=== PATIENT | female | born 1985 | race Caucasian/White ===

== ENCOUNTER 2017-02-15 13:43 | Emergency (ER) | payer OTHER ==
[2017-02-15 14:00] VITALS: BP 134/86
--- NOTE | 2017-02-15 15:23 | ED.ADGEN ---
Past History Past Medical History: No Pertinent History Past Surgical History: No Surgical History Alcohol Use: None Drug Use: None Adult General Chief Complaint Chief Complaint Left arm pain HPI HPI Patient is a 31-year-old right-handed female presents with left arm pain after falling down some steps 2 days ago. Patient reports persistent pain tenderness and swelling to proximal third of her wrists over bicep. Pain with palpation and movement. Initially reports left shoulder pain which has since resolved. Denies wrist, or elbow pain. No other symptoms or complaints. Patient has not been evaluated for this complaint prior to today's visit. [] Review of Systems Review of Systems Review symptoms as per history of present illness. All other review symptoms are negative. All other systems were reviewed and found to be within normal limits, except as documented in this note. Allergies Allergies Allergies Coded Allergies Type Severity Reaction Last Updated Verified amoxicillin Allergy Unknown 02/29/16 Yes Physical Exam Physical Exam Constitutional: Well developed, well nourished, no acute distress, non-toxic appearance. [] HENT: Normocephalic, atraumatic, bilateral external ears normal, oropharynx moist, no oral exudates, nose normal. [] Eyes: PERRLA, EOMI. Neck: Normal range of motion, no tenderness, supple, no stridor. [] Lungs & Thorax: Bilateral breath sounds clear to auscultation [] Extremities: Left upper extremity, no deformities,soft tissue tenderness mild swelling over anterior third of bicep, limited abduction and flexion extension. no pain, tenderness swelling, bruising over shoulder, left elbow, forearm wrist pain.. [] Neurologic: Alert and oriented X 3, left upper extremity, no motor sensory deficits. [] Psychologic: Affect normal, judgement normal, mood normal. [] Current Patient Data Vital Signs Vital Signs Date Time Temp Pulse Resp B/P (MAP) Pulse Ox O2 Delivery O2 Flow Rate FiO2 02/15/17 14:00 98.0 81 16 99 Room Air EKG EKG [] Radiology/Procedures Radiology/Procedures [Left humerus: No obvious displaced fracture] Course & Med Decision Making Course & Med Decision Making Pertinent Labs and Imaging studies reviewed. (See chart for details) [Left arm pain without obvious displaced fracture. Recommend supportive care and PCP follow-up as needed.] Final Impression Final Impression [Left arm contusion] Problems: Dragon Disclaimer Dragon Disclaimer This electronic medical record was generated, in whole or in part, using a voice recognition dictation system. JANIE AGUILAR DO Feb 15, 2017 15:22
--- NOTE | 2017-02-15 16:35 | RAD ---
Exam: Left humerus radiograph 02/15/2017 Indication: Left humerus pain, status post fall Comparison: None available Technique: 2 views of the left humerus are provided. Findings: There is no acute fracture or dislocation. No joint space narrowing. No soft tissue swelling. No osseous erosion or soft tissue gas. Bone mineralization is within normal limits. Impression: No acute fracture or dislocation.
== END 2017-02-15 16:00 | disposition home or self-care (01) ==
LOC: ER 13:43
DX: S40.022A Contusion of left upper arm, initial encounter (principal); Z88.1 Allergy status to other antibiotic agents; W10.8XXA Fall (on) (from) other stairs and steps, initial encounter; Y93.89 Activity, other specified; Y99.8 Other external cause status; Y92.89 Other specified places as the place of occurrence of the external cause
CPT/HCPCS: 73060; 99284

== ENCOUNTER 2018-05-14 08:20 | Emergency (ER) | payer OTHER ==
[~2018-05-14] VITALS: Ht 149.9 cm; Wt 52.2 kg
[2018-05-14] MEDS ORDERED: CLOB15OI TP (08:57)
--- NOTE | 2018-05-14 08:59 | PHYS DOC ---
Past History Past Medical History: No Pertinent History Past Surgical History: No Surgical History Alcohol Use: None Drug Use: None Adult General Chief Complaint Chief Complaint: mouth pain HPI HPI 32 year old female presents with mouth pain. Patient states that she had a feeling of a ridge on the report from now on the left side couple days ago and then the area is tender rupture. Afterward, she has had significant pain in her mouth. She tried again or primary care physician and dentist in neither one can see her till next week. Patient is concerned that it might be infection. She has known dental issues, but states that her teeth are not hurting and her gums are not swollen. This pain radiates up into her left ear. No history of ear infections as an adult. She denies fever or chills. Review of Systems Review of Systems Constitutional: Denies fever or chills [] Eyes: Denies change in visual acuity, redness, or eye pain [] HENT: Upper mouth pain[] Respiratory: Denies cough or shortness of breath [] Cardiovascular: No additional information not addressed in HPI [] GI: Denies abdominal pain, nausea, vomiting, bloody stools or diarrhea [] : Denies dysuria or hematuria [] Musculoskeletal: Denies back pain or joint pain [] Integument: Denies rash or skin lesions [] Neurologic: Denies headache, focal weakness or sensory changes [] Endocrine: Denies polyuria or polydipsia [] All other systems were reviewed and found to be within normal limits, except as documented in this note. Current Medications Current Medications Current Medications Medications (Trade) Dose Ordered Sig/[facility] Start Time Stop Time Status Last Admin Dose Admin Lidocaine HCl (Viscous Lidocaine) 15 ml 1X ONCE 05/14/18 09:00 05/14/18 09:01 UNV Allergies Allergies Allergies Coded Allergies Type Severity Reaction Last Updated Verified amoxicillin Allergy Unknown 02/29/16 Yes Physical Exam Physical Exam Constitutional: Well developed, well nourished, no acute distress, non-toxic appearance. [] HENT: Normocephalic, atraumatic, bilateral external ears normal, oropharynx with 1 cm ulceration on the left hard palate, no oral exudates, nose normal. [] Eyes: PERRLA, EOMI, conjunctiva normal, no discharge. [] Neck: Normal range of motion, no tenderness, supple, no stridor. [] Cardiovascular:Heart rate regular rhythm, no murmur [] Lungs & Thorax: Bilateral breath sounds clear to auscultation [] Abdomen: Bowel sounds normal, soft, no tenderness, no masses, no pulsatile masses. [] Skin: Warm, dry, no erythema, no rash. [] Back: No tenderness, no CVA tenderness. [] Extremities: No tenderness, no cyanosis, no clubbing, ROM intact, no edema. [] Neurologic: Alert and oriented X 3, normal motor function, normal sensory function, no focal deficits noted. [] Psychologic: Affect normal, judgement normal, mood normal. [] Current Patient Data Vital Signs Vital Signs Date Time Temp Pulse Resp B/P (MAP) Pulse Ox O2 Delivery O2 Flow Rate FiO2 05/14/18 08:42 67 22 100 Room Air EKG EKG [] Radiology/Procedures Radiology/Procedures [] Course & Med Decision Making Course & Med Decision Making Pertinent Labs and Imaging studies reviewed. (See chart for details) The patient appears to have an aphthous ulcer. Treat her with viscous lidocaine for comfort in the ED followed by a prescription for clobetasol 3 times a day for 5 days. She will also use Orajel for further discomfort. She is stable for discharge at this time. [] Dragon Disclaimer Dragon Disclaimer This electronic medical record was generated, in whole or in part, using a voice recognition dictation system. Departure Departure: Impression: Primary Impression: Aphthous ulcer Disposition: HOME, SELF-CARE Condition: STABLE Referrals: PCP,UNKNOWN (PCP) Patient Instructions: Oral Ulcers Scripts Clindamycin Hcl (CLINDAMYCIN HCL) 300 Mg Capsule 1 CAP PO TID for oral infection, #21 CAP Prov: JANIE NOVAK DO 05/14/18 Clobetasol Propionate (CLOBETASOL PROPIONATE) 15 Gm Oint...g. 1 CARLOS TP TID for oral ulcer for 5 Days, #15 GM Dry the effected area with gauze. Then pPlace a small amount of gel on the effected area. Do not rinse afterward. Do not eat or drink for 30 minutes Prov: JANIE NOVAK DO 05/14/18 JANIE NOVAK DO May 14, 2018 08:59
[2018-05-14 09:10] VITALS: BP 130/89
[2018-05-14] MEDS ORDERED: CLIN300C8 PO (09:26)
[2018-05-14] MEDS ORDERED: LIDOCAINE 2% VISCOUS 15 ML SOLUTION. SWSW ONE (09:30)
== END 2018-05-14 09:30 | disposition home or self-care (01) ==
LOC: ER 08:20
DX: K12.0 Recurrent oral aphthae (principal); Z88.1 Allergy status to other antibiotic agents
CPT/HCPCS: 99283

== ENCOUNTER 2018-07-02 19:33 | Emergency (ER) | payer OTHER ==
[~2018-07-02] VITALS: Ht 149.9 cm; Wt 52.2 kg
[~2018-07-02 19:33] MED LIST: CLIN300C8 PO; CLOB15OI TP
[2018-07-02 19:46] VITALS: BP 131/84
[2018-07-02] MEDS ORDERED: IV NORMAL SALINE 1,000ML 1,000 ML IV SCH (19:50)
[2018-07-02 20:34] LABS: BASO % 1 % (0-3); EOS # 0.4 x10^3/uL (0.0-0.7); EOS % 8 % (0-3); LYMPH # 1.7 x10^3/uL (1.0-4.8); LYMPH % 36 % (24-48); MEAN CORPUSCULAR HEMOGLOBIN 31 pg (25-35); MEAN CORPUSCULAR HGB CONC 35 g/dL (31-37); MEAN CORPUSCULAR VOLUME 88 fL (79-100); MONO # 0.4 x10^3/uL (0.0-1.1); MONO % 8 % (0-9); NEUT # 2.3 x10^3uL (1.8-7.7); NEUT % 48 % (31-73); PLATELET COUNT 222 x10^3/uL (140-400); PREG TEST PT QUAL NEGATIVE (NEG); WHITE BLOOD COUNT 4.7 x10^3/uL (4.0-11.0)
--- NOTE | 2018-07-02 21:20 | PHYS DOC ---
Past History Past Medical History: No Pertinent History Past Surgical History: No Surgical History Alcohol Use: None Drug Use: None Adult General Chief Complaint Chief Complaint: SHORTNESS OF BREATH [facility] HPI Patient is a 32-year-old female who presents with complaint of shortness of breath that started yesterday. Patient indicates that she had been out jogging and states that she felt like she was having an asthma attack. She states that she got home and she used a nebulizer treatment but that did not resolve symptoms. She wonders if maybe she had just gotten exposed to too much pollen. She states that the symptoms did slowly resolve and then again last night around midnight, the symptoms returned without any actual wheezing. She states that she felt like she was just not able to get enough air in. Patient states that she had to sleep sitting up. She states that symptoms had ultimately resolved and then started up again when she was sitting down to dinner. She denies any leg pain or swelling. She also denies any chest pain or cough. She states that the symptoms are worsened with exertion.[] Review of Systems Review of Systems Constitutional: Denies fever or chills [] Respiratory: Complains of shortness of breath [] Cardiovascular: No additional information not addressed in HPI [] GI: Denies abdominal pain, nausea, vomiting or diarrhea [] Neurologic: Denies headache, focal weakness or sensory changes [] All other systems were reviewed and found to be within normal limits, except as documented in this note. Current Medications Current Medications Current Medications Medications (Trade) Dose Ordered Sig/[place] Start Time Stop Time Status Last Admin Dose Admin Sodium Chloride 1,000 ml @ 100 mls/hr Q10H 07/02/18 19:50 07/03/18 05:49 07/02/18 20:22 100 MLS/HR Allergies Allergies Allergies Coded Allergies Type Severity Reaction Last Updated Verified amoxicillin Allergy Unknown 02/29/16 Yes Physical Exam Physical Exam Constitutional: Well developed, well nourished, no acute distress, non-toxic appearance. [] HENT: Normocephalic, atraumatic, bilateral external ears normal, oropharynx moist, no oral exudates, nose normal. [] Eyes: PERRLA, EOMI, conjunctiva normal, no discharge. [] Neck: Normal range of motion, no tenderness, supple. [] Cardiovascular:Heart rate regular rhythm, no murmur [] Lungs & Thorax: Bilateral breath sounds clear to auscultation [] Abdomen: Bowel sounds normal, soft, no tenderness. [] Skin: Warm, dry, no erythema, no rash. [] Extremities: No tenderness, no cyanosis, no clubbing, ROM intact, no edema. [] Neurologic: Alert and oriented X 3, normal motor function, normal sensory function, no focal deficits noted. [] Current Patient Data Vital Signs Vital Signs Date Time Temp Pulse Resp B/P (MAP) Pulse Ox O2 Delivery O2 Flow Rate FiO2 07/02/18 19:46 98.5 74 20 100 Room Air Lab Results Laboratory Tests Test 07/02/18 20:12 07/02/18 20:42 White Blood Count 4.7 x10^3/uL (4.0-11.0) Red Blood Count 4.20 x10^6/uL (3.50-5.40) Hemoglobin 13.0 g/dL (12.0-15.5) Hematocrit 37.0 % (36.0-47.0) Mean Corpuscular Volume 88 fL (79-100) Mean Corpuscular Hemoglobin 31 pg (25-35) Mean Corpuscular Hemoglobin Concent 35 g/dL (31-37) Red Cell Distribution Width 13.0 % (11.5-14.5) Platelet Count 222 x10^3/uL (140-400) Neutrophils (%) (Auto) 48 % (31-73) Lymphocytes (%) (Auto) 36 % (24-48) Monocytes (%) (Auto) 8 % (0-9) Eosinophils (%) (Auto) 8 % (0-3) H Basophils (%) (Auto) 1 % (0-3) Neutrophils # (Auto) 2.3 x10^3uL (1.8-7.7) Lymphocytes # (Auto) 1.7 x10^3/uL (1.0-4.8) Monocytes # (Auto) 0.4 x10^3/uL (0.0-1.1) Eosinophils # (Auto) 0.4 x10^3/uL (0.0-0.7) Basophils # (Auto) 0.0 x10^3/uL (0.0-0.2) Troponin I Quantitative < 0.017 ng/mL (0-0.055) Serum Test, Qualitative Negative (NEG) POC Urine HCG, Qualitative hcg negative (Negative) EKG EKG EKG demonstrates normal sinus rhythm with rate of 68.[] Radiology/Procedures Radiology/Procedures [] Impressions: Two-view chest x-ray demonstrates no acute process. Course & Med Decision Making Course & Med Decision Making Pertinent Labs and Imaging studies reviewed. (See chart for details) [] Dragon Disclaimer Dragon Disclaimer This electronic medical record was generated, in whole or in part, using a voice recognition dictation system. Departure Departure: Impression: Primary Impression: Dyspnea Disposition: HOME, SELF-CARE Condition: STABLE Referrals: PCP,NO (PCP) Patient Instructions: Shortness of Breath Scripts Cetirizine Hcl (ZYRTEC) 10 Mg Tablet 1 TAB PO DAILY for allergies, #30 TAB Prov: CRISTIN PLASCENCIA Jr. DO 07/02/18 Montelukast Sodium (MONTELUKAST SODIUM TABLET) 10 Mg Tablet 1 TAB PO DAILY for asthma, #30 TAB Prov: CRISTIN PLASCENCIA Jr. DO 07/02/18 Problem Qualifiers Primary Impression: Dyspnea Dyspnea type: shortness of breath Qualified Codes: R06.02 - Shortness of breath CRISTIN PLASCENCIA Jr. DO July 02, 2018 21:20
[2018-07-02 21:31] LABS: ALBUMIN 3.9 g/dL (3.4-5.0); ALBUMIN/GLOBULIN RATIO 1.2 (1.0-1.7); CALCIUM 8.9 mg/dL (8.5-10.1); CREATININE 0.8 mg/dL (0.6-1.0); GFR 82.1; POTASSIUM 3.4 mmol/L (3.5-5.1); TOTAL BILIRUBIN 1.8 mg/dL (0.2-1.0); TOTAL PROTEIN 7.2 g/dL (6.4-8.2)
[2018-07-02] MEDS ORDERED: CETI10TA22 PO (22:22)
[2018-07-02] MEDS ORDERED: MONT10TA9 PO (22:22)
--- NOTE | 2018-07-03 00:34 | RAD ---
PA and lateral chest radiographs 07/02/2018 Clinical History: Shortness of breath. PA and lateral digital radiographs of the chest were obtained. No previous studies are available for comparison. The cardiac and mediastinal silhouettes are within normal limits in size and configuration. No pulmonary infiltrate is seen. No pleural effusion or pneumothorax is noted. The osseous structures are grossly intact. Impression: No radiographic evidence of active cardiopulmonary disease. Electronically signed by: Eren Sorto MD (07/03/2018 12:31 AM) [facility]
--- NOTE | 2018-07-04 22:10 | EKG ---
[address] [address] Test Date: 2018-07-02 Test Time: 20:28:20 Pat Name: JUANCHO NOLASCO Department: Room: Gender: F Director Of Acquisitions: ZHEN : 1985 Requested By: CRISTIN PLASCENCIA Order Number: [id number] Reading MD: Tad Ramos Measurements Intervals [place] Rate: 68 P: 62 ID: [id number] QRS: 78 QRSD: 78 T: 60 QT: 408 QTc: 434 Interpretive Statements SINUS RHYTHM Electronically Signed On 07-23-2018 12:37:55 CDT by Tad Ramos
== END 2018-07-02 22:41 | disposition home or self-care (01) ==
LOC: ER 19:50
DX: R06.02 Shortness of breath (principal); Z88.1 Allergy status to other antibiotic agents
CPT/HCPCS: 36415; 71046; 80053; 81025; 83880; 84484; 84703; 85025; 85379; 93005; 99285-25; J7030

== ENCOUNTER 2019-02-08 17:24 | Emergency (ER) | payer OTHER ==
[~2019-02-08] VITALS: Ht 149.9 cm; Wt 52.2 kg
[~2019-02-08 17:24] MED LIST changes: +CETI10TA22 PO; +MONT10TA80 PO
--- NOTE | 2019-02-08 17:41 | PHYS DOC ---
Past History Past Medical History: No Pertinent History (SAMIR LORA DO) Past Surgical History: No Surgical History (SAMIR LORA DO) Smoking: Non-smoker Alcohol Use: None Drug Use: None (SAMIR LORA DO) Adult General Chief Complaint Chief Complaint: COUGH HPI HPI Patient is a 33-year-old female presents complaining of respirophasic chest discomfort that has been present for the past 2 days. She feels like it is hard to take a deep breath. She has had some nasal congestion but this is chronic. She did get some relief with ibuprofen. But discomfort has gotten worse as the day has worn on. No significant cough. No sick family contacts. She has not had any travel or stasis, no trauma, and no known hypercoagulable state. She denies any hemoptysis or leg swelling.[] (SAMIR LORA DO) Review of Systems Review of Systems Constitutional: Denies fever or chills [] Eyes: Denies change in visual acuity, redness, or eye pain [] HENT: Denies nasal congestion or sore throat [] Respiratory: See history of present illness[] Cardiovascular: No additional information not addressed in HPI, no palpitations, no worsening with exertion[] GI: Denies abdominal pain, nausea, vomiting, bloody stools or diarrhea [] : Denies dysuria or hematuria [] Musculoskeletal: Denies back pain or joint pain [] Integument: Denies rash or skin lesions [] Neurologic: Denies headache, focal weakness or sensory changes [] Endocrine: Denies polyuria or polydipsia [] All other systems were reviewed and found to be within normal limits, except as documented in this note. (SAMIR LORA DO) Allergies Allergies Allergies Coded Allergies Type Severity Reaction Last Updated Verified amoxicillin Allergy Unknown 02/29/16 Yes (SAMIR LORA DO) Physical Exam Physical Exam Constitutional: Well developed, well nourished, no acute distress, non-toxic appearance. [] HENT: Normocephalic, atraumatic, bilateral external ears normal, oropharynx moist, no oral exudates, nose normal. [] Eyes: PERRLA, EOMI, conjunctiva normal, no discharge. [] Neck: Normal range of motion, no tenderness, supple, no stridor. [] Cardiovascular:Heart rate regular rhythm, no murmur [] Lungs & Thorax: Bilateral breath sounds clear to auscultation, no tenderness to palpation [] Abdomen: Bowel sounds normal, soft, no tenderness, no masses, no pulsatile masses. [] Skin: Warm, dry, no erythema, no rash. [] Back: No tenderness, no CVA tenderness. [] Extremities: No tenderness, no cyanosis, no clubbing, ROM intact, no edema. [] Neurologic: Alert and oriented X 3, normal motor function, normal sensory function, no focal deficits noted. [] Psychologic: Affect normal, judgement normal, mood normal. [] (SAMIR LORA DO) EKG EKG [] (SAMIR LORA DO) Radiology/Procedures Radiology/Procedures [] (SAMIR LORA DO) Impressions: CHEST PA LATERAL History: Chest pain Comparison: 07/02/2018 two-view chest x-ray exam. Findings: The cardiomediastinal silhouette is normal. Pulmonary vasculature is normal. The lungs are clear. No pleural effusion or pneumothorax is seen. There is no acute bone abnormality. IMPRESSION: No acute cardiopulmonary process. Electronically signed by: King Mccray MD (02/08/2019 6:33 PM) [facility] DICTATED AND SIGNED BY: KING MCCRAY MD DATE: 02/08/191832 CC: JANIE NOVAK DO; SAMIR LORA DO; PCP,NO ~ (JANIE NOVAK DO) Course & Med Decision Making Course & Med Decision Making Pertinent Labs and Imaging studies reviewed. (See chart for details) Emergency department course: Patient arrived, was placed in bed, and tolerated exam well. PERC rule for pulmonary embolism was negative.[] (SAMIR LORA DO) Course & Med Decision Making The patient's chest x-ray is negative. I further interviewed the patient and she describes her chest discomfort as a aching sensation only with deep breathing. She has had a low-grade fever of around 100. She admits this could be a viral illness. She is on a major was a pneumonia. She does not appear to have pneumonia at this time. She is stable for discharge. (JANIE NOVAK DO) Dragon Disclaimer Dragon Disclaimer This electronic medical record was generated, in whole or in part, using a voice recognition dictation system. (SAMIR LORA DO) Departure Departure: Impression: Primary Impression: Chest pain Disposition: HOME, SELF-CARE Condition: STABLE Referrals: PCP,NO (PCP) Patient Instructions: Chest Pain (Nonspecific), [id number] Problem Qualifiers Primary Impression: Chest pain Chest pain type: chest pain on breathing Qualified Codes: R07.1 - Chest pain on breathing SAMIR LORA DO Feb 08, 2019 17:41 JANIE NOVAK DO Feb 08, 2019 18:41
[2019-02-08] MEDS ORDERED: KETOROLAC 30 MG/ML VIAL. IM ONE (17:45)
--- NOTE | 2019-02-08 18:36 | RAD ---
CHEST PA LATERAL History: Chest pain Comparison: 07/02/2018 two-view chest x-ray exam. Findings: The cardiomediastinal silhouette is normal. Pulmonary vasculature is normal. The lungs are clear. No pleural effusion or pneumothorax is seen. There is no acute bone abnormality. IMPRESSION: No acute cardiopulmonary process. Electronically signed by: Kulwinder Soto MD (02/08/2019 6:33 PM) [facility]
[2019-02-08 18:56] VITALS: BP 120/62
== END 2019-02-08 18:57 | disposition home or self-care (01) ==
LOC: ER 17:24
DX: R07.1 Chest pain on breathing (principal); Z88.1 Allergy status to other antibiotic agents
CPT/HCPCS: 71046; 96372; 99284; J1885

== ENCOUNTER 2019-04-09 08:40 | Emergency (ER) | payer OTHER ==
[~2019-04-09] VITALS: Ht 149.9 cm; Wt 50.0 kg
[~2019-04-09 08:40] MED LIST changes: -CETI10TA22 PO; +CETI10TA24 PO
[2019-04-09] MEDS ORDERED: IV NORMAL SALINE 1,000ML 1,000 ML IV SCH (08:54)
[2019-04-09 09:25] VITALS: BP 131/89
[2019-04-09 09:32] LABS: CALCIUM 8.4 mg/dL (8.5-10.1); CREATININE 0.7 mg/dL (0.6-1.0); GFR 95.2; POTASSIUM 3.8 mmol/L (3.5-5.1)
[2019-04-09 09:38] LABS: ALBUMIN/GLOBULIN RATIO 1.1 (1.0-1.7); TOTAL BILIRUBIN 1.7 mg/dL (0.2-1.0); TOTAL PROTEIN 7.6 g/dL (6.4-8.2)
[2019-04-09 09:41] LABS: BASO % 1 % (0-3); EOS # 0.1 x10^3/uL (0.0-0.7); EOS % 2 % (0-3); HEMOGLOBIN 14.3 g/dL (12.0-15.5); LYMPH # 1.3 x10^3/uL (1.0-4.8); LYMPH % 27 % (24-48); MEAN CORPUSCULAR HEMOGLOBIN 31 pg (25-35); MEAN CORPUSCULAR HGB CONC 34 g/dL (31-37); MEAN CORPUSCULAR VOLUME 91 fL (79-100); MONO # 0.6 x10^3/uL (0.0-1.1); MONO % 12 % (0-9); NEUT # 2.9 x10^3uL (1.8-7.7); NEUT % 59 % (31-73); PLATELET COUNT 240 x10^3/uL (140-400); RED BLOOD COUNT 4.65 x10^6/uL (3.50-5.40); RED CELL DISTRIBUTION WIDTH 12.6 % (11.5-14.5); WHITE BLOOD COUNT 4.9 x10^3/uL (4.0-11.0)
[2019-04-09 09:58] LABS: BACTERIA,URINE 0 /HPF (0-FEW); BILIRUBIN,URINE NEG (NEG); CLARITY,URINE HAZY; COLOR,URINE STRAW; GLUCOSE,URINE NEG (NEG); NITRITE,URINE NEG (NEG); RBC,URINE 0 /HPF (0-2); SQUAMOUS EPITHELIAL CELL,UR FEW /LPF; UROBILINOGEN,URINE 0.2 mg/dL (0.2 mg/dL)
[2019-04-09] MEDS ORDERED: IOHEXOL 300 MG/ML 75 ML VIAL. IV ONE (10:15)
--- NOTE | 2019-04-09 11:01 | RAD ---
Examination: CT abdomen pelvis with IV contrast HISTORY: History of lower abdominal pain COMPARISON: None available Technique: Axial CT images of the abdomen pelvis were performed with IV contrast. Coronal and sagittal reformats are performed. Exposure: One or more of the following individualized dose reduction techniques were utilized for this examination: 1. Automated exposure control 2. Adjustment of the mA and/or kV according to patient size 3. Use of iterative reconstruction technique FINDINGS: The bibasilar lungs are clear. No evidence of free air identified in the abdomen. The liver, spleen, adrenals grossly appears unremarkable. Gallbladder is mildly distended. The stomach is mildly distended. The visualized pancreas grossly appears unremarkable. The small bowel is nondilated. The appendix is normal. Feces and gas noted in the colon. Urinary bladder is mildly distended. Small amount of fluid identified in the endometrium of the uterus. There is a cystic structure identified in the left adnexa measuring 2 cm could be a left ovarian follicle/ruptured follicle, ruptured hemorrhagic cyst with small amount of in the pelvis and in the right lower quadrant of the abdomen. The bilateral kidneys enhance symmetrically. The caliber of the aorta grossly appears unremarkable. No evidence of lytic bony destructive lesion. IMPRESSION: 1. A 2 cm cystic density identified in the left adnexa could be a left ovarian follicle, ruptured ovarian follicle or hemorrhagic cyst. Small amount of free fluid identified in the pelvis and in the right lower quadrant of the abdomen. Ultrasound pelvis may be useful for further evaluation. Electronically signed by: Nikos Aguilar MD (04/09/2019 10:58 AM) [facility] [place]
[2019-04-09] MEDS ORDERED: HYDR-3165 PO (11:21)
[2019-04-09] MEDS ORDERED: ONDA4TAB12 PO (11:21)
--- NOTE | 2019-04-09 11:21 | PHYS DOC ---
Past History Past Medical History: No Pertinent History, Other Additional Past Medical Histor: ch sinusitis Past Surgical History: No Surgical History Smoking: Non-smoker Alcohol Use: None Drug Use: None Adult General Chief Complaint Chief Complaint: ABDOMINAL PAIN HPI HPI Patient is a 33-year-old female who presents with complaint of lower abdominal pain for the last couple of days. Patient states that pain has been as high as about a 7 out of 10. Patient does indicate that she had just recently finished Tamiflu for influenza a as well as Augmentin previously for sinus infection. She states that she has also been having some diarrhea. Patient states that she is c oncerned about the pain in the lower abdomen because she is getting ready to move to [place] in the next few days.[] Review of Systems Review of Systems Constitutional: Denies fever or chills [] Respiratory: Denies cough or shortness of breath [] Cardiovascular: No additional information not addressed in HPI [] GI: Complains of lower abdominal pain with diarrhea [] : Denies dysuria or hematuria [] Neurologic: Denies headache, focal weakness or sensory changes [] All other systems were reviewed and found to be within normal limits, except as documented in this note. Current Medications Current Medications Current Medications Medications (Trade) Dose Ordered Sig/Gordo Start Time Stop Time Status Last Admin Dose Admin Iohexol (Omnipaque 300 Mg/ml) 75 ml 1X ONCE 04/09/19 10:15 04/09/19 10:23 DC 04/09/19 10:38 75 ML Sodium Chloride 1,000 ml @ 1,000 mls/hr Q1H 04/09/19 08:54 04/09/19 09:53 DC 04/09/19 08:54 1,000 MLS/HR Allergies Allergies Allergies Coded Allergies Type Severity Reaction Last Updated Verified amoxicillin Allergy Unknown 02/29/16 Yes Physical Exam Physical Exam Constitutional: Well developed, well nourished, no acute distress, non-toxic appearance. [] HENT: Normocephalic, atraumatic, bilateral external ears normal, oropharynx moist, no oral exudates, nose normal. [] Eyes: PERRLA, EOMI, conjunctiva normal, no discharge. [] Neck: Normal range of motion, no tenderness, supple. [] Cardiovascular:Heart rate regular rhythm, no murmur [] Lungs & Thorax: Bilateral breath sounds clear to auscultation [] Abdomen: Bowel sounds normal, soft, with mild lower abdominal tenderness, left greater than right. [] Skin: Warm, dry, no erythema, no rash. [] Extremities: No tenderness, no cyanosis, no clubbing, ROM intact, no edema. [] Neurologic: Alert and oriented X 3, no focal deficits noted. [] Current Patient Data Vital Signs Vital Signs Date Time Temp Pulse Resp B/P (MAP) Pulse Ox O2 Delivery O2 Flow Rate FiO2 04/09/19 09:25 98.1 75 18 131/89 (103) 99 Room Air Lab Results Laboratory Tests Test 04/09/19 08:47 04/09/19 09:08 Urine Collection Type Unknown Urine Color Straw Urine Clarity Hazy Urine pH 7.0 Urine Specific Ulen 1.010 Urine Protein Neg (NEG-TRACE) Urine Glucose (UA) Neg mg/dL (NEG) Urine Ketones (Stick) Neg mg/dL (NEG) Urine Blood Neg (NEG) Urine Nitrite Neg (NEG) Urine Bilirubin Neg (NEG) Urine Urobilinogen Dipstick 0.2 mg/dL (0.2 mg/dL) Urine Leukocyte Esterase Neg (NEG) Urine RBC 0 /HPF (0-2) Urine WBC 1-4 /HPF (0-4) Urine Squamous Epithelial Cells Few /LPF Urine Bacteria 0 /HPF (0-FEW) Urine Mucus Slight /LPF White Blood Count 4.9 x10^3/uL (4.0-11.0) Red Blood Count 4.65 x10^6/uL (3.50-5.40) Hemoglobin 14.3 g/dL (12.0-15.5) Hematocrit 42.0 % (36.0-47.0) Mean Corpuscular Volume 91 fL (79-100) Mean Corpuscular Hemoglobin 31 pg (25-35) Mean Corpuscular Hemoglobin Concent 34 g/dL (31-37) Red Cell Distribution Width 12.6 % (11.5-14.5) Platelet Count 240 x10^3/uL (140-400) Neutrophils (%) (Auto) 59 % (31-73) Lymphocytes (%) (Auto) 27 % (24-48) Monocytes (%) (Auto) 12 % (0-9) H Eosinophils (%) (Auto) 2 % (0-3) Basophils (%) (Auto) 1 % (0-3) Neutrophils # (Auto) 2.9 x10^3uL (1.8-7.7) Lymphocytes # (Auto) 1.3 x10^3/uL (1.0-4.8) Monocytes # (Auto) 0.6 x10^3/uL (0.0-1.1) Eosinophils # (Auto) 0.1 x10^3/uL (0.0-0.7) Basophils # (Auto) 0.0 x10^3/uL (0.0-0.2) Sodium Level 142 mmol/L (136-145) Potassium Level 3.8 mmol/L (3.5-5.1) Chloride Level 104 mmol/L (98-107) Carbon Dioxide Level 28 mmol/L (21-32) Anion Gap 10 (6-14) Blood Urea Nitrogen 7 mg/dL (7-20) Creatinine 0.7 mg/dL (0.6-1.0) Estimated GFR (Cockcroft-Gault) 95.2 BUN/Creatinine Ratio 10 (6-20) Glucose Level 72 mg/dL (70-99) Calcium Level 8.4 mg/dL (8.5-10.1) L Total Bilirubin 1.7 mg/dL (0.2-1.0) H Aspartate Amino Transferase (AST) 16 U/L (15-37) Alanine Aminotransferase (ALT) 25 U/L (14-59) Alkaline Phosphatase 78 U/L (46-116) Total Protein 7.6 g/dL (6.4-8.2) Albumin 4.0 g/dL (3.4-5.0) Albumin/Globulin Ratio 1.1 (1.0-1.7) Lipase 220 U/L (73-393) EKG EKG [] Radiology/Procedures Radiology/Procedures [] Course & Med Decision Making Course & Med Decision Making Pertinent Labs and Imaging studies reviewed. (See chart for details) [] Dragon Disclaimer Dragon Disclaimer This electronic medical record was generated, in whole or in part, using a voice recognition dictation system. Departure Departure: Impression: Primary Impression: Ovarian cyst Disposition: 01 HOME, SELF-CARE Condition: STABLE Referrals: PCP,NO (PCP) Patient Instructions: Ovarian Cyst Scripts Ondansetron (ONDANSETRON ODT) 4 Mg Tab.rapdis 1 TAB PO PRN Q6-8HRS PRN for NAUSEA, #12 TAB Prov: CRISTIN PLASCENCIA Jr. DO 04/09/19 Hydrocodone Bit/Acetaminophen (NORCO 5-325 TABLET) 1 Each Tablet 1 TAB PO PRN Q6HRS PRN for PAIN, #12 TAB 0 Refills Prov: CRISTIN PLASCENCIA Jr. DO 04/09/19 Problem Qualifiers Primary Impression: Ovarian cyst Laterality: left Qualified Codes: N83.202 - Unspecified ovarian cyst, left side CRISTIN PLASCENCIA Jr. DO Apr 09, 2019 11:21
== END 2019-04-09 11:29 | disposition home or self-care (01) ==
LOC: ER 08:40
DX: N83.202 Unspecified ovarian cyst, left side (principal); R19.7 Diarrhea, unspecified; Z88.1 Allergy status to other antibiotic agents
CPT/HCPCS: 36415; 74177; 80053; 81001; 81025; 83690; 85025; 96360; 99285; Q9967; J7030